=== PATIENT | female | born 1945 | race Caucasian/White ===

== ENCOUNTER 2018-03-16 14:14 | Emergency (ER) | payer MEDICARE, OTHER ==
[~2018-03-16] VITALS: Ht 165.1 cm; Wt 106.6 kg
[2018-03-16] MEDS ORDERED: LIDOCAINE 1%/EPI 1:100,000 20 ML VIAL. IJ ONE (15:00)
--- NOTE | 2018-03-16 15:00 | RAD ---
CT head without contrast: Reason for examination: Fell. On anticoagulants. Axial images were obtained through the brain. No contrast was administered. Ventricular systems are symmetric and not abnormally dilated. No midline shift is seen. There is no evidence of intracranial hemorrhage, infarct, mass or edema. Some minimal deep white matter changes are present consistent some mild microvascular ischemic change. No abnormalities are seen at the orbits. The paranasal sinuses and mastoid air cells are clear. No acute abnormality seen in the skull. IMPRESSION: No acute intracranial abnormality evident. CT cervical spine without contrast: Helical images were obtained through the cervical spine from skull base through the thoracic apices. Reconstruction was performed in sagittal and coronal planes. The C1 ring is a defect posteriorly which may be congenital. The odontoid process appears to be intact and normally centered between the lateral masses of C1. The cervical vertebral bodies are normally aligned anteriorly and posteriorly. No acute fracture or subluxation is seen. Posterior elements appear to be intact. There are degenerative changes present at the facet joints at the C4-5 level. There is some posterior longitudinal ligament calcification at the C2-3 C3-4 and C5-6 levels. There are some hypertrophic spurring off the anterior endplates which is most prominent at the C6-7 level. Prevertebral soft tissues are normal. The intervertebral discs are fairly well-maintained. IMPRESSION: Degenerative spondylosis. No acute abnormality of the cervical spine. 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 No acute abnormality evident in the cervical spine. Exposure: One or more of the following individualized dose reduction techniques were utilized for this examination: 1. Automated exposure control 2. Adjustment of the mA and/or kV according to patient size 3. Use of iterative reconstruction technique. Electronically signed by: Val Hewitt MD (03/16/2018 2:56 PM) [facility]
--- NOTE | 2018-03-16 15:08 | PHYS DOC ---
Past Medical History Past Medical History: A-Fib, Hypertension, Other Additional Past Medical Histor: edema Past Surgical History: Other Additional Past Surgical Histo: bilateral knee Alcohol Use: None Drug Use: None Adult General Chief Complaint Chief Complaint: MECHANICAL FALL HPI HPI Patient is a 72 year old female who presents with fall. The patient was visiting her at [facility]. Patient states she tripped over the toe of her shoe and fell forward striking her face on the wall. She presents to the ER complaining of minor laceration over the left orbit. She did not have loss of consciousness. She is not having neck pain. She did not have chest pain , palpitations or feel lightheaded prior to the incident or after. She reports that she has been at baseline health. Review of Systems Review of Systems Constitutional: Denies fever or chills Eyes: Denies change in visual acuity, redness, or eye pain HENT: no injury not documented above Respiratory: Denies cough or shortness of breath Cardiovascular: No additional information not addressed in HPI GI: Denies abdominal pain Musculoskeletal: Denies back pain or joint pain Integument: Denies rash or skin lesions Neurologic: Denies headache, focal weakness or sensory changes All other systems were reviewed and found to be within normal limits, except as documented in this note. Current Medications Current Medications Current Medications Medications (Trade) Dose Ordered Sig/[facility] Start Time Stop Time Status Last Admin Dose Admin Lidocaine/ Epinephrine (LIDOCAINE 1%-EPI 1:100,000 Multi-Dose) 20 ml 1X ONCE 03/16/18 15:00 03/16/18 15:01 DC 03/16/18 14:48 20 ML Allergies Allergies Allergies Coded Allergies Type Severity Reaction Last Updated Verified No Known Drug Allergies 03/16/18 No Physical Exam Physical Exam Constitutional: Well developed, well nourished, no acute distress, non-toxic appearance HENT: Normocephalic, bilateral external ears normal, oropharynx moist, no oral exudates, nose normal. 0.5 cm laceration over the lateral superior aspect of the left orbit. Wound is hemostatic. Eyes: PERRLA, EOMI, conjunctiva normal Neck: Normal range of motion, no tenderness Cardiovascular:Heart rate regular rhythm, no murmur Lungs & Thorax: Bilateral breath sounds clear to auscultation Skin: Warm, dry, no erythema, no rash Extremities: trace edema bilateral LE's which patient states is baseline Neurologic: Alert and oriented X 3 Psychologic: Affect normal Current Patient Data Vital Signs Vital Signs Date Time Temp Pulse Resp B/P (MAP) Pulse Ox O2 Delivery O2 Flow Rate FiO2 03/16/18 14:50 90 16 98 03/16/18 14:14 98.4 134/88 (103) Room Air 98.4 EKG EKG [] Radiology/Procedures Radiology/Procedures IMPRESSION: No acute intracranial abnormality evident. CT cervical spine without contrast: Helical images were obtained through the cervical spine from skull base through the thoracic apices. Reconstruction was performed in sagittal and coronal planes. The C1 ring is a defect posteriorly which may be congenital. The odontoid process appears to be intact and normally centered between the lateral masses of C1. The cervical vertebral bodies are normally aligned anteriorly and posteriorly. No acute fracture or subluxation is seen. Posterior elements appear to be intact. There are degenerative changes present at the facet joints at the C4-5 level. There is some posterior longitudinal ligament calcification at the C2-3 C3-4 and C5-6 levels. There are some hypertrophic spurring off the anterior endplates which is most prominent at the C6-7 level. Prevertebral soft tissues are normal. The intervertebral discs are fairly well-maintained. IMPRESSION: Degenerative spondylosis. No acute abnormality of the cervical spine. 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 No acute abnormality evident in the cervical spine. Exposure: One or more of the following individualized dose reduction techniques were utilized for this examination: 1. Automated exposure control 2. Adjustment of the mA and/or kV according to patient size 3. Use of iterative reconstruction technique. Course & Med Decision Making Course & Med Decision Making Pertinent Labs and Imaging studies reviewed. (See chart for details) Patient is seen and examined in the emergency department following what she describes to be a mechanical fall. She had a CT scan of the head and cervical spine which did not reveal acute bony findings. Also x-ray of left humerus which was normal and free from any acute fracture. She had a laceration which did require repair. Please see procedure note documented below. Ultimately, the patient was discharged to home. She was encouraged to come back to the ER in 5 days for suture removal, sooner if she develops any new or worrisome symptoms. Patient verbalized understanding of wound care and return instructions and all of her questions were answered prior to discharge home. \ Procedure Note: 0.5 cm lac over left lateral orbit. The area was anesthetized with 1.5 mL of lidocaine with epinephrine. 3 simple, interrupted sutures were placed using 5-0 nylon. The wound was well approximated. There was no debridement required. Patient tolerated well. Dragon Disclaimer Dragon Disclaimer This electronic medical record was generated, in whole or in part, using a voice recognition dictation system. Departure Departure Referrals: CHULA RAMIREZ Jr, MD (PCP) STUART RUELAS DO Mar 16, 2018 15:08
[2018-03-16 15:30] VITALS: BP 130/62
--- NOTE | 2018-03-16 15:55 | RAD ---
Left humerus 2 views: Reason for examination: Fell onto left arm with pain. No acute fracture is seen at the humerus. The bone density is normal. No abnormal periosteal reaction is seen. There is no dislocation at the shoulder or elbow joints. There are degenerative changes present at the acromiohumeral joint space and at the AC joint. IMPRESSION: Degenerative change at the acromial humeral and AC joints. No acute fracture seen at the humerus. Electronically signed by: Val Hewitt MD (03/16/2018 3:51 PM) [facility]
== END 2018-03-16 15:50 | disposition home or self-care (01) ==
LOC: ER 14:14
DX: S01.112A Laceration without foreign body of left eyelid and periocular area, initial encounter (principal); S09.8XXA Other specified injuries of head, initial encounter; M79.602 Pain in left arm; R60.0 Localized edema; I10 Essential (primary) hypertension; I48.91 Unspecified atrial fibrillation; W01.198A Fall on same level from slipping, tripping and stumbling with subsequent striking against other object, initial encounter; Y93.89 Activity, other specified; Y92.89 Other specified places as the place of occurrence of the external cause; Y99.8 Other external cause status
CPT/HCPCS: 12011; 70450; 72125; 73060; 99284; J3490

== ENCOUNTER 2018-03-21 14:36 | Emergency (ER) | payer MEDICARE, OTHER ==
[~2018-03-21] VITALS: Ht 165.1 cm; Wt 106.6 kg
[2018-03-21 15:04] VITALS: BP 150/90
--- NOTE | 2018-03-21 15:16 | PHYS DOC ---
Past Medical History Past Medical History: A-Fib, Hypertension, Other Additional Past Medical Histor: edema Past Surgical History: Other Additional Past Surgical Histo: bilateral knee Alcohol Use: None Drug Use: None Adult General Chief Complaint Chief Complaint: SUTURE/STAPLE REMOVAL HPI HPI 72 y/o female presents to ER for suture removal request. Pt reports she had fallen on Saturday and was evaluated in this ER and received 3 sutures to lt side forehead/brow line. Pt denies any fever/chills, TORREZ, visual disturbances, dizziness, or lightheadedness. Pt reports she feels good and laceration has healed well. Review of Systems Review of Systems Constitutional: Denies fever or chills [] Eyes: Denies change in visual acuity or eye pain [] HENT: Denies nasal congestion GI: Denies nausea/vomiting Musculoskeletal: Denies neck pain Integument: Reports healing laceration lt forehead/brow line from Saturday with 3 sutures Neurologic: Denies headache, focal weakness or sensory changes [] All other systems were reviewed and found to be within normal limits, except as documented in this note. Allergies Allergies Allergies Coded Allergies Type Severity Reaction Last Updated Verified No Known Drug Allergies 03/16/18 No Physical Exam Physical Exam Constitutional: Well developed, well nourished, no acute distress, non-toxic appearance. [] HENT: Normocephalic, bilateral ears normal, healing laceration at lt forehead/ brow line with 3 visible sutures- no swelling/erythema/ecchymosis at site, nose normal. [] Eyes: 3mm PERRLA, no nystagmus, conjunctiva normal, no discharge. [] Skin: Warm, dry, no erythema, no rash. [] Back: No tenderness, full ROM Extremities: No tenderness, no cyanosis, no clubbing, ROM intact, no edema.Bruise lt forearm which pt reports is from fall- mild tenderness at site- full ROM with no focal deficits. Neuro/vascular intact all extremities Neurologic: Alert and oriented X 3, normal motor function, normal sensory function, no focal deficits noted. [] Psychologic: Affect normal, judgement normal, mood normal. [] Current Patient Data Vital Signs Vital Signs Date Time Temp Pulse Resp B/P (MAP) Pulse Ox O2 Delivery O2 Flow Rate FiO2 03/21/18 15:04 98.6 93 18 150/90 (110) 97 Room Air 98.6 EKG EKG [] Radiology/Procedures Radiology/Procedures [] Course & Med Decision Making Course & Med Decision Making 3 sutures removed from lt side forehead/lac site without difficulty- wound well healed with no erythema/swelling/drainage/bleeding at site. Site is nontender. Discussed continued monitoring signs and symptoms for infection. Patient to apply triple antibiotic or Neosporin to laceration site for next couple of days. Education provided on signs and symptoms return to ER for an discharge instructions were discussed. Patient has been in no visible distress. Dragon Disclaimer Dragon Disclaimer This electronic medical record was generated, in whole or in part, using a voice recognition dictation system. Departure Departure Impression: Primary Impression: Visit for suture removal Disposition: 01 HOME, SELF-CARE Condition: STABLE Referrals: CHULA RAMIREZ Jr, MD (PCP) Patient Instructions: Suture Removal PRO LAL APRN Mar 21, 2018 15:16
== END 2018-03-21 15:21 | disposition home or self-care (01) ==
LOC: ER 14:36
DX: S01.81XD Laceration without foreign body of other part of head, subsequent encounter (principal); I10 Essential (primary) hypertension; I48.91 Unspecified atrial fibrillation; X58.XXXD Exposure to other specified factors, subsequent encounter
CPT/HCPCS: 99284

== ENCOUNTER 2018-04-23 05:19 | Emergency (ER) | payer MEDICARE, OTHER ==
[~2018-04-23] VITALS: Ht 163.8 cm; Wt 102.1 kg
[2018-04-23] MEDS ORDERED: IV NORMAL SALINE 500ML BAG 500 ML IV ONE (07:00)
[2018-04-23] MEDS ORDERED: dilTIAZem IV PUSH 25 MG/5 ML VIAL IVP ONE (07:00)
[2018-04-23 07:14] LABS: BASO # 0.1 x10^3/uL (0.0-0.2); BASO % 1 % (0-3); EOS % 0 % (0-3); HEMATOCRIT 42.2 % (36.0-47.0); HEMOGLOBIN 14.1 g/dL (12.0-15.5); LYMPH # 1.7 x10^3/uL (1.0-4.8); LYMPH % 17 % (24-48); MEAN CORPUSCULAR HEMOGLOBIN 30 pg (25-35); MEAN CORPUSCULAR HGB CONC 34 g/dL (31-37); MEAN CORPUSCULAR VOLUME 88 fL (79-100); MONO # 0.8 x10^3/uL (0.0-1.1); MONO % 8 % (0-9); NEUT # 7.4 x10^3uL (1.8-7.7); NEUT % 74 % (31-73); PLATELET COUNT 262 x10^3/uL (140-400); RED BLOOD COUNT 4.77 x10^6/uL (3.50-5.40); RED CELL DISTRIBUTION WIDTH 15.9 % (11.5-14.5); WHITE BLOOD COUNT 10.1 x10^3/uL (4.0-11.0)
[2018-04-23 07:18] LABS: CALCIUM 9.7 mg/dL (8.5-10.1); CREATININE 0.8 mg/dL (0.6-1.0); GFR 70.7; POTASSIUM 3.8 mmol/L (3.5-5.1)
[2018-04-23 07:23] LABS: ALBUMIN 3.4 g/dL (3.4-5.0); ALBUMIN/GLOBULIN RATIO 0.9 (1.0-1.7); MAGNESIUM 1.6 mg/dL (1.8-2.4); TOTAL BILIRUBIN 0.9 mg/dL (0.2-1.0); TOTAL PROTEIN 7.4 g/dL (6.4-8.2)
--- NOTE | 2018-04-23 07:23 | EKG ---
[facility] [address] [place] [address] Test Date: 2018-04-23 Test Time: 06:35:47 Pat Name: TARAS BENITEZ Department: Room: Gender: F [facility] Customer Service: : 1945 Requested By: GENOVEVA REED Order Number: [id number] Reading MD: Measurements Intervals [place] Rate: 110 P: FL: QRS: 8 QRSD: 86 T: 44 QT: 322 QTc: 441 Interpretive Statements ATRIAL FIB./FLUTTER WITH RAPID VENTRICULAR RESPONSE NON SPECIFIC T ABNORMALITY NON SPECIFIC ST DEPRESSION ABNORMAL ECG No previous ECG available for comparison
[2018-04-23] MEDS ORDERED: MAGNESIUM OXIDE 400 MG TABLET PO STA (07:36)
--- NOTE | 2018-04-23 07:57 | PHYS DOC ---
Past Medical History Past Medical History: A-Fib, Hypertension, Other Additional Past Medical Histor: edema Past Surgical History: Other Additional Past Surgical Histo: bilateral knee Alcohol Use: None Drug Use: None Adult General Chief Complaint Chief Complaint: NOSEBLEED HPI HPI Patient is a 72 year old [female presenting with nose bleed. It was bleeding spontaneously no trauma no pain it stopped prior to arrival. She does have A. fib she is on a blood thinner she says it starts T she does not know the name she had been nonproductive she is supposed to start Coumadin next week. She does not have any chest pain no shortness of breath no palpitations. Review of Systems Review of Systems Constitutional: Denies fever or chills [] Eyes: Denies change in visual acuity, redness, or eye pain [] Respiratory: Denies cough or shortness of breath [] Cardiovascular: No additional information not addressed in HPI [] Integument: Denies rash or skin lesions [] Neurologic: Denies headache, focal weakness or sensory changes [] Endocrine: Denies polyuria or polydipsia [] All other systems were reviewed and found to be within normal limits, except as documented in this note. Current Medications Current Medications Current Medications Medications (Trade) Dose Ordered Sig/Jack Start Time Stop Time Status Last Admin Dose Admin Diltiazem HCl (Cardizem) 10 mg 1X ONCE 04/23/18 07:00 04/23/18 07:01 DC 04/23/18 07:19 10 MG Magnesium Oxide (Magnesium Oxide) 400 mg 1X STAT 04/23/18 07:36 04/23/18 07:41 DC 04/23/18 07:53 400 MG Sodium Chloride 500 ml @ 500 mls/hr 1X ONCE 04/23/18 07:00 04/23/18 07:59 04/23/18 07:18 500 MLS/HR Allergies Allergies Allergies Coded Allergies Type Severity Reaction Last Updated Verified No Known Drug Allergies 03/16/18 No Physical Exam Physical Exam Constitutional: Well developed, well nourished, no acute distress, non-toxic appearance. [] HENT: Normocephalic, atraumatic, bilateral external ears normal, oropharynx moist, no oral exudates, nose small area of scab with stigmata of recent bleeding Kiesselbach's plexus right medial septum Eyes: PERRLA, EOMI, conjunctiva normal, no discharge. [] Neck: Normal range of motion, no tenderness, supple, no stridor. [] Cardiovascular: Irregularly irregular tachycardic no murmurs Lungs & Thorax: Bilateral breath sounds clear to auscultation [] Abdomen: Bowel sounds normal, soft, no tenderness, no masses, no pulsatile masses. [] Skin: Warm, dry, no erythema, no rash. [] Back: No tenderness, no CVA tenderness. [] Extremities: No tenderness, no cyanosis, no clubbing, ROM intact, no edema. [] Neurologic: Alert and oriented X 3, normal motor function, normal sensory function, no focal deficits noted. [] Psychologic: Affect normal, judgement normal, mood normal. [] Current Patient Data Vital Signs Vital Signs Date Time Temp Pulse Resp B/P (MAP) Pulse Ox O2 Delivery O2 Flow Rate FiO2 04/23/18 07:27 138 140/100 (113) 97 04/23/18 05:55 98.1 16 Room Air 98.1 Lab Values Laboratory Tests Test 04/23/18 06:55 White Blood Count 10.1 x10^3/uL (4.0-11.0) Red Blood Count 4.77 x10^6/uL (3.50-5.40) Hemoglobin 14.1 g/dL (12.0-15.5) Hematocrit 42.2 % (36.0-47.0) Mean Corpuscular Volume 88 fL (79-100) Mean Corpuscular Hemoglobin 30 pg (25-35) Mean Corpuscular Hemoglobin Concent 34 g/dL (31-37) Red Cell Distribution Width 15.9 % (11.5-14.5) H Platelet Count 262 x10^3/uL (140-400) Neutrophils (%) (Auto) 74 % (31-73) H Lymphocytes (%) (Auto) 17 % (24-48) L Monocytes (%) (Auto) 8 % (0-9) Eosinophils (%) (Auto) 0 % (0-3) Basophils (%) (Auto) 1 % (0-3) Neutrophils # (Auto) 7.4 x10^3uL (1.8-7.7) Lymphocytes # (Auto) 1.7 x10^3/uL (1.0-4.8) Monocytes # (Auto) 0.8 x10^3/uL (0.0-1.1) Eosinophils # (Auto) 0.0 x10^3/uL (0.0-0.7) Basophils # (Auto) 0.1 x10^3/uL (0.0-0.2) Sodium Level 138 mmol/L (136-145) Potassium Level 3.8 mmol/L (3.5-5.1) Chloride Level 102 mmol/L (98-107) Carbon Dioxide Level 28 mmol/L (21-32) Anion Gap 8 (6-14) Blood Urea Nitrogen 24 mg/dL (7-20) H Creatinine 0.8 mg/dL (0.6-1.0) Estimated GFR (Cockcroft-Gault) 70.7 BUN/Creatinine Ratio 30 (6-20) H Glucose Level 100 mg/dL (70-99) H Calcium Level 9.7 mg/dL (8.5-10.1) Magnesium Level 1.6 mg/dL (1.8-2.4) L Total Bilirubin 0.9 mg/dL (0.2-1.0) Aspartate Amino Transferase (AST) 22 U/L (15-37) Alanine Aminotransferase (ALT) 44 U/L (14-59) Alkaline Phosphatase 76 U/L (46-116) Troponin I Quantitative < 0.017 ng/mL (0.000-0.055) Total Protein 7.4 g/dL (6.4-8.2) Albumin 3.4 g/dL (3.4-5.0) Albumin/Globulin Ratio 0.9 (1.0-1.7) L Laboratory Tests 04/23/18 06:55 Laboratory Tests 04/23/18 06:55 EKG EKG [] Interpretation Time: EKG shows A. fib with a rate of 111 no ischemic changes noted this was interpreted by me the time of encounter Radiology/Procedures Radiology/Procedures [] Course & Med Decision Making Course & Med Decision Making Pertinent Labs and Imaging studies reviewed. (See chart for details) []72-year-old female on anticoagulation history of A. fib present with nosebleed. On examhas stopped spontaneously no intervention necessary noted a heart rate heart rate of 130 patient has not yet taken her oral diltiazem today. Patient was given IV fluids and 10 of IV diltiazem and heart rate down trended and mostly into the 90s and low 100s 105 range. Patient had no symptoms at all she was very eager to be discharged. She was advised to take her oral diltiazem return precautions were discussed patient voiced understanding of instructions reviewed nosebleed precautions as well. Dragon Disclaimer Dragon Disclaimer This electronic medical record was generated, in whole or in part, using a voice recognition dictation system. Departure Departure Impression: Primary Impression: Nosebleed Additional Impression: Atrial fibrillation with RVR Disposition: 01 HOME, SELF-CARE Condition: IMPROVED Patient Instructions: Nosebleed, [id number] Problem Qualifiers GENOVEVA REED MD Apr 23, 2018 07:57
[2018-04-23 08:04] VITALS: BP 145/93
== END 2018-04-23 07:55 | disposition home or self-care (01) ==
LOC: ER 05:19
DX: R04.0 Epistaxis (principal); I48.0 Paroxysmal atrial fibrillation; I10 Essential (primary) hypertension
CPT/HCPCS: 36415; 80053; 83735; 84484; 85025; 93005; 96374; 99285; J3490; J7040

== ENCOUNTER 2018-04-28 14:30 | Emergency (ER) | payer MEDICARE, OTHER ==
[~2018-04-28] VITALS: Ht 162.6 cm; Wt 102.1 kg
[2018-04-28 17:00] VITALS: BP 154/96
[2018-04-28 17:17] LABS: BASO # 0.1 x10^3/uL (0.0-0.2); BASO % 1 % (0-3); EOS # 0.1 x10^3/uL (0.0-0.7); EOS % 1 % (0-3); HEMATOCRIT 42.9 % (36.0-47.0); HEMOGLOBIN 14.1 g/dL (12.0-15.5); LYMPH # 1.7 x10^3/uL (1.0-4.8); LYMPH % 15 % (24-48); MEAN CORPUSCULAR HEMOGLOBIN 29 pg (25-35); MEAN CORPUSCULAR HGB CONC 33 g/dL (31-37); MEAN CORPUSCULAR VOLUME 89 fL (79-100); MONO % 9 % (0-9); NEUT # 8.3 x10^3uL (1.8-7.7); NEUT % 75 % (31-73); PLATELET COUNT 241 x10^3/uL (140-400); RED BLOOD COUNT 4.82 x10^6/uL (3.50-5.40); RED CELL DISTRIBUTION WIDTH 15.8 % (11.5-14.5); WHITE BLOOD COUNT 11.1 x10^3/uL (4.0-11.0)
[2018-04-28 17:26] LABS: PROTHROMBIN TIME PATIENT 24.9 SEC (11.7-14.0)
[2018-04-28] MEDS ORDERED: SODI104S NS (17:26)
--- NOTE | 2018-04-28 17:27 | PHYS DOC ---
Past Medical History Past Medical History: A-Fib, Hypertension, Other Additional Past Medical Histor: edema Past Surgical History: Other Additional Past Surgical Histo: bilateral knee Alcohol Use: None Drug Use: None Adult General Chief Complaint Chief Complaint: NOSEBLEED HPI HPI Patient is a 72 year old [f__sex] who presents with [] Review of Systems Review of Systems Constitutional: Denies fever or chills [] Eyes: Denies change in visual acuity, redness, or eye pain [] HENT: Denies nasal congestion or sore throat [] Respiratory: Denies cough or shortness of breath [] Cardiovascular: No additional information not addressed in HPI [] GI: Denies abdominal pain, nausea, vomiting, bloody stools or diarrhea [] : Denies dysuria or hematuria [] Musculoskeletal: Denies back pain or joint pain [] Integument: Denies rash or skin lesions [] Neurologic: Denies headache, focal weakness or sensory changes [] Endocrine: Denies polyuria or polydipsia [] All other systems were reviewed and found to be within normal limits, except as documented in this note. Allergies Allergies Allergies Coded Allergies Type Severity Reaction Last Updated Verified No Known Drug Allergies 03/16/18 No Physical Exam Physical Exam Constitutional: Well developed, well nourished, no acute distress, non-toxic appearance. [] HENT: Normocephalic, atraumatic, bilateral external ears normal, oropharynx moist, no oral exudates, nose normal. [] Eyes: PERRLA, EOMI, conjunctiva normal, no discharge. [] Neck: Normal range of motion, no tenderness, supple, no stridor. [] Cardiovascular:Heart rate regular rhythm, no murmur [] Lungs & Thorax: Bilateral breath sounds clear to auscultation [] Abdomen: Bowel sounds normal, soft, no tenderness, no masses, no pulsatile masses. [] Skin: Warm, dry, no erythema, no rash. [] Back: No tenderness, no CVA tenderness. [] Extremities: No tenderness, no cyanosis, no clubbing, ROM intact, no edema. [] Neurologic: Alert and oriented X 3, normal motor function, normal sensory function, no focal deficits noted. [] Psychologic: Affect normal, judgement normal, mood normal. [] Current Patient Data Lab Values Laboratory Tests Test 04/28/18 17:05 White Blood Count 11.1 x10^3/uL (4.0-11.0) H Red Blood Count 4.82 x10^6/uL (3.50-5.40) Hemoglobin 14.1 g/dL (12.0-15.5) Hematocrit 42.9 % (36.0-47.0) Mean Corpuscular Volume 89 fL (79-100) Mean Corpuscular Hemoglobin 29 pg (25-35) Mean Corpuscular Hemoglobin Concent 33 g/dL (31-37) Red Cell Distribution Width 15.8 % (11.5-14.5) H Platelet Count 241 x10^3/uL (140-400) Neutrophils (%) (Auto) 75 % (31-73) H Lymphocytes (%) (Auto) 15 % (24-48) L Monocytes (%) (Auto) 9 % (0-9) Eosinophils (%) (Auto) 1 % (0-3) Basophils (%) (Auto) 1 % (0-3) Neutrophils # (Auto) 8.3 x10^3uL (1.8-7.7) H Lymphocytes # (Auto) 1.7 x10^3/uL (1.0-4.8) Monocytes # (Auto) 1.0 x10^3/uL (0.0-1.1) Eosinophils # (Auto) 0.1 x10^3/uL (0.0-0.7) Basophils # (Auto) 0.1 x10^3/uL (0.0-0.2) Laboratory Tests 04/28/18 17:05 EKG EKG [] Radiology/Procedures Radiology/Procedures [] Course & Med Decision Making Course & Med Decision Making Pertinent Labs and Imaging studies reviewed. (See chart for details) [] Dragon Disclaimer Dragon Disclaimer This electronic medical record was generated, in whole or in part, using a voice recognition dictation system. Departure Departure Impression: Primary Impression: Epistaxis Disposition: 01 HOME, SELF-CARE Condition: STABLE Referrals: CHULA RAMIREZ Jr, MD (PCP) Patient Instructions: Nosebleed, [id number] Additional Instructions: USE humidifier at night. USE nasal clamp as instructed in the Emergency Department. For further bleeding, blow nose to remove any blood clots, then placed clamp to nose x 15 min. After 15 minutes then remove. If bleeding continues, repeat x 2 additional times. IF bleeding still continues then present to the ED for further evaluation. Scripts Sodium Chloride (OCEAN) 104 Ml [place] 104 ML NS QID, #1 BOTTLE Prov: LISA ARTHUR DO 04/28/18 LISA ARTHUR DO Apr 28, 2018 17:27
== END 2018-04-28 17:40 | disposition home or self-care (01) ==
LOC: ER 14:30
DX: R04.0 Epistaxis (principal); I48.91 Unspecified atrial fibrillation; I10 Essential (primary) hypertension
CPT/HCPCS: 36415; 85025; 85610; 85730; 99284

== ENCOUNTER 2018-08-14 13:17 | Emergency (ER) | payer MEDICARE, OTHER ==
[~2018-08-14] VITALS: Ht 167.6 cm; Wt 102.1 kg
[~2018-08-14 13:17] MED LIST: SODI104S NS
[2018-08-14 13:20] VITALS: BP 158/79
[2018-08-14] MEDS ORDERED: SILVER NITRATE STICK TP ONE (13:30)
[2018-08-14] MEDS ORDERED: OXYMETAZOLINE 0.05% NASAL SPRAY 30ML BOTTLE. NS ONE (13:30)
--- NOTE | 2018-08-14 13:48 | PHYS DOC ---
Past Medical History Past Medical History: A-Fib, Hypertension, Other Additional Past Medical Histor: edema, nose bleeds Past Surgical History: Other Additional Past Surgical Histo: bilateral knee Alcohol Use: None Drug Use: None Adult General Chief Complaint Chief Complaint: NOSEBLEED HPI HPI Patient is a 73 year old f p/w nosebleed since noon right nare then left then came out right eye last warfarin last night inr yest am was 2.6 SHE TELLS ME took dose of eliquis today she is switchign from warfarin to eliquis Review of Systems Review of Systems Constitutional: Denies fever or chills [] Eyes: Denies change in visual acuity, redness, or eye pain [] HENT: Denies nasal congestion or sore throat [] Respiratory: Denies cough or shortness of breath [] Cardiovascular: No additional information not addressed in HPI [] GI: Denies abdominal pain, nausea, vomiting, bloody stools or diarrhea [] : Denies dysuria or hematuria [] Musculoskeletal: Denies back pain or joint pain [] Integument: Denies rash or skin lesions [] Neurologic: Denies headache, focal weakness or sensory changes [] Endocrine: Denies polyuria or polydipsia [] All other systems were reviewed and found to be within normal limits, except as documented in this note. Current Medications Current Medications Current Medications Medications (Trade) Dose Ordered Sig/Jack Start Time Stop Time Status Last Admin Dose Admin Oxymetazoline HCl (Afrin) 2 spray 1X ONCE 08/14/18 13:30 08/14/18 13:33 DC 08/14/18 14:02 2 SPRAY Phytonadione (Mephyton Oral Soln) 2.5 mg 1X ONCE 08/14/18 14:30 08/14/18 14:31 DC 08/14/18 14:38 2.5 MG Silver Nitrate/ Potassium Nitrate 1 each 1X ONCE 08/14/18 13:30 08/14/18 13:33 DC 08/14/18 14:01 1 EACH Allergies Allergies Allergies Coded Allergies Type Severity Reaction Last Updated Verified No Known Drug Allergies 03/16/18 No Physical Exam Physical Exam Constitutional: Well developed, well nourished, no acute distress, non-toxic appearance. [] HENT: Normocephalic, atraumatic, bilateral external ears normal, oropharynx moist, no oral exudates, nose pt has ACTIVBE BLEEDING FROM RIGHT NARE COULD NOT VISUALIZE THE SITE. LEFT NARE CLEAR. Eyes: PERRLA, EOMI, conjunctiva normal, no discharge. [] Neck: Normal range of motion, no tenderness, supple, no stridor. [] normal effort no increased work of breathign Abdomen: Bowel sounds normal, soft, no tenderness, no masses, no pulsatile masses. [] Skin: Warm, dry, no erythema, no rash. [] Back: No tenderness, no CVA tenderness. [] Extremities: No tenderness, no cyanosis, no clubbing, ROM intact, no edema. [] Neurologic: Alert and oriented X 3, normal motor function, normal sensory function, no focal deficits noted. [] Psychologic: Affect normal, judgement normal, mood normal. [] Current Patient Data Vital Signs Vital Signs Date Time Temp Pulse Resp B/P (MAP) Pulse Ox O2 Delivery O2 Flow Rate FiO2 08/14/18 13:20 98.9 94 18 158/79 (105) 96 Room Air 98.9 EKG EKG [] Radiology/Procedures Radiology/Procedures [] Course & Med Decision Making Course & Med Decision Making Pertinent Labs and Imaging studies reviewed. (See chart for details) []Hemostasis was achieved initially we tried some Afrin but it was bleeding too profusely I could not cauterize so I placed a Rhino rocket and I achieved excellent hemostasis We did give a dose of vitamin K I think the issue here is the patient had been on Coumadin as recently as last night and switch over to her [place] a little early this morning. I advised her to have no anticoagulation for 24 hours that the vitamin K K cane and then start the [place] tomorrow evening. Follow-up with ENT in 3-4 days she has an ENT doctor at [facility] Disclaimer [facility] Disclaimer This electronic medical record was generated, in whole or in part, using a voice recognition dictation system. Departure Departure Impression: Primary Impression: Epistaxis Disposition: 01 HOME, SELF-CARE Condition: STABLE Referrals: CHULA RAMIREZ Jr, MD (PCP) Scripts Cephalexin (CEPHALEXIN) 500 Mg Tablet 1 TAB PO QID, #20 TAB Prov: GENOVEVA REED MD 08/14/18 GENOVEVA REED MD Aug 14, 2018 13:48
[2018-08-14] MEDS ORDERED: CEPH500T PO (14:23)
[2018-08-14] MEDS ORDERED: PHYTONADIONE 10 MG/ML ORAL SOLUTION. PO ONE (14:30)
== END 2018-08-14 14:40 | disposition home or self-care (01) ==
LOC: ER 13:17
DX: R04.0 Epistaxis (principal); I48.91 Unspecified atrial fibrillation; I10 Essential (primary) hypertension
CPT/HCPCS: 30901; 99284

== ENCOUNTER → 2018-12-23 | Outpatient (CLI) | payer MEDICARE, OTHER ==
[~2018-12-23] MED LIST changes: +CEPH500T PO
--- NOTE | 2018-12-23 16:05 | KCIC ---
Examination: CT right shoulder without contrast HISTORY: History of right shoulder pain, preoperative Comparison: 03/16/2018 TECHNIQUE: Axial CT images of the right shoulder were performed with contrast. Coronal and sagittal deformities are performed Exposure: One or more of the following individualized dose reduction techniques were utilized for this examination: 1. Automated exposure control 2. Adjustment of the mA and/or kV according to patient size 3. Use of iterative reconstruction technique FINDINGS: There is superior translation of the humerus head in relation to the glenoid. The head of the humerus lies just below the level of the acromion. Severe joint space loss identified in the right shoulder joint. Small osteophyte formation identified in the glenohumeral joint. Moderate degenerative disease identified in the acromioclavicular joint. There is moderate fatty atrophic changes of the supraspinatus, infraspinatus muscles. Faint calcifications identified in the supraspinatus muscle. IMPRESSION: 1. Superior translation of the humerus in relation to glenoid probably due to rotator cuff pathology. Chronic rotator cuff tear not excluded. Consider MRI for further evaluation. 2. Severe degenerative changes glenohumeral joint, acromioclavicular joint. Electronically signed by: Surinder Hinojosa MD (12/23/2018 4:02 PM) [facility] [place]
== END | disposition home or self-care (01) ==
LOC: KCIC CT 09:04
PROVIDERS: ATTEND Orthopaedic Surgery
DX: Z01.818 Encounter for other preprocedural examination (principal); M19.011 Primary osteoarthritis, right shoulder; M25.711 Osteophyte, right shoulder; M61.411 Other calcification of muscle, right shoulder; M62.58 Muscle wasting and atrophy, not elsewhere classified, other site
CPT/HCPCS: 73200

== ENCOUNTER → 2019-01-14 | Outpatient (CLI) | payer MEDICARE, OTHER ==
[2019-01-14 17:08] LABS: BASO # 0.1 x10^3/uL (0.0-0.2); BASO % 1 % (0-3); EOS # 0.1 x10^3/uL (0.0-0.7); EOS % 1 % (0-3); HEMATOCRIT 38.3 % (36.0-47.0); HEMOGLOBIN 12.7 g/dL (12.0-15.5); LYMPH # 1.9 x10^3/uL (1.0-4.8); LYMPH % 22 % (24-48); MEAN CORPUSCULAR HEMOGLOBIN 30 pg (25-35); MEAN CORPUSCULAR HGB CONC 33 g/dL (31-37); MEAN CORPUSCULAR VOLUME 90 fL (79-100); MONO # 0.9 x10^3/uL (0.0-1.1); MONO % 10 % (0-9); NEUT % 67 % (31-73); PLATELET COUNT 249 x10^3/uL (140-400); RED BLOOD COUNT 4.26 x10^6/uL (3.50-5.40); RED CELL DISTRIBUTION WIDTH 16.9 % (11.5-14.5)
[2019-01-14 17:09] LABS: BILIRUBIN,URINE NEGATIVE (NEG); CLARITY,URINE CLEAR; COLOR,URINE YELLOW; NITRITE,URINE NEGATIVE (NEG); PROTEIN,URINE 100 mg/dL (NEG-TRACE)
[2019-01-14 17:16] LABS: SQUAMOUS EPITHELIAL CELL,UR MANY /LPF
[2019-01-14 17:17] LABS: BACTERIA,URINE MANY /HPF (0-FEW)
[2019-01-14 17:18] LABS: HYALINE CASTS, URINE MODERATE /HPF
[2019-01-14 17:19] LABS: PROTHROMBIN TIME PATIENT 17.8 SEC (11.7-14.0)
[2019-01-14 17:36] LABS: CALCIUM 9.5 mg/dL (8.5-10.1); GFR 54.5; POTASSIUM 3.5 mmol/L (3.5-5.1)
== END | disposition home or self-care (01) ==
LOC: LAB 16:09
PROVIDERS: ATTEND Orthopaedic Surgery
DX: M19.011 Primary osteoarthritis, right shoulder (principal); I10 Essential (primary) hypertension; R79.1 Abnormal coagulation profile; Z79.899 Other long term (current) drug therapy
CPT/HCPCS: 36415; 80048; 81001; 82306; 85025; 85610; 85730; 87070; 87641

== ENCOUNTER → 2019-05-06 | Outpatient (CLI) | payer MEDICARE, OTHER ==
--- NOTE | 2019-05-06 15:05 | KCIC ---
CT study of the left shoulder without contrast Clinical indications: Chronic left shoulder pain. Limited range of motion. TECHNIQUE: Noncontrast helical CT scanning of the left shoulder was performed. Multiplanar 2-D reconstructions were generated. PQRS compliance Statement One or more of the following individualized dose reduction techniques were utilized for this study: 1. Automated exposure control 2. Adjustment of the mA and/or kV according to patient size 3. Use of iterative reconstruction technique FINDINGS: No acute fracture or dislocation or lytic process is evident. There is severe degenerative osteoarthritis with loss of the joint space of the glenohumeral joint. There is a defect of the medial aspect of the humeral head. This may be seen with avascular necrosis. This defect measures 15 mm in greatest dimension. There is depression of the cortex and therefore, an unstable osteochondral fragment may be present. There is superior subluxation of the humeral head with respect to the glenoid fossa. This could be due to a rotator cuff tear. There is narrowing of the acromial humeral space. There is moderate degenerative osteoarthritis and spurring of the AC joint. There is spurring of the inferior edge of the acromial process. Type III acromial process is seen. These findings may impinge the acromial humeral space resulting in rotator cuff disease. There are chronic erosions and cystic spaces of the lateral aspect of the humeral head consistent with chronic impingement. No radiopaque loose body is evident. 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 Superior subluxation of the humeral head which may secondary to a rotator cuff tear. This may be further evaluated with MRI imaging. Impingement of the acromial humeral space. Electronically signed by: Iraj Almaraz MD (05/06/2019 3:02 PM) [id number]
== END | disposition home or self-care (01) ==
LOC: KCIC CT 12:43
PROVIDERS: ATTEND Orthopaedic Surgery
DX: S43.002A Unspecified subluxation of left shoulder joint, initial encounter (principal); M19.012 Primary osteoarthritis, left shoulder; Z96.611 Presence of right artificial shoulder joint; X58.XXXA Exposure to other specified factors, initial encounter; Y93.89 Activity, other specified; Y92.89 Other specified places as the place of occurrence of the external cause; Y99.8 Other external cause status
CPT/HCPCS: 73200

== ENCOUNTER → 2019-05-25 | Outpatient (CLI) | payer MEDICARE, OTHER ==
[2019-05-25 13:01] LABS: BASO % 1 % (0-3); EOS # 0.2 x10^3/uL (0.0-0.7); EOS % 2 % (0-3); HEMOGLOBIN 13.4 g/dL (12.0-15.5); LYMPH # 1.8 x10^3/uL (1.0-4.8); LYMPH % 26 % (24-48); MEAN CORPUSCULAR HEMOGLOBIN 29 pg (25-35); MEAN CORPUSCULAR HGB CONC 33 g/dL (31-37); MEAN CORPUSCULAR VOLUME 87 fL (79-100); MONO # 0.6 x10^3/uL (0.0-1.1); MONO % 9 % (0-9); NEUT # 4.3 x10^3/uL (1.8-7.7); NEUT % 62 % (31-73); PLATELET COUNT 231 x10^3/uL (140-400); RED BLOOD COUNT 4.71 x10^6/uL (3.50-5.40); RED CELL DISTRIBUTION WIDTH 15.4 % (11.5-14.5); WHITE BLOOD COUNT 6.9 x10^3/uL (4.0-11.0)
[2019-05-25 13:08] LABS: BILIRUBIN,URINE NEGATIVE (NEG); CLARITY,URINE CLEAR; COLOR,URINE YELLOW; NITRITE,URINE NEGATIVE (NEG); PROTEIN,URINE NEGATIVE (NEG-TRACE)
[2019-05-25 13:27] LABS: CALCIUM 9.9 mg/dL (8.5-10.1); GFR 54.3; POTASSIUM 3.8 mmol/L (3.5-5.1)
[2019-05-25 13:40] LABS: PROTHROMBIN TIME PATIENT 16.1 SEC (11.7-14.0)
[2019-05-25 13:51] LABS: BACTERIA,URINE MODERATE /HPF (0-FEW); RBC,URINE 0 /HPF (0-2); SQUAMOUS EPITHELIAL CELL,UR OCC /LPF
== END | disposition home or self-care (01) ==
LOC: LAB 12:22
PROVIDERS: ATTEND Orthopaedic Surgery
DX: M12.811 Other specific arthropathies, not elsewhere classified, right shoulder (principal); I48.91 Unspecified atrial fibrillation; Z79.899 Other long term (current) drug therapy
CPT/HCPCS: 36415; 80048; 81001; 85025; 85610; 85730; 87070; 87086; 87641